=== PATIENT | female | born 1985 | race Caucasian/White ===

== ENCOUNTER → 2017-01-23 | Outpatient (CLI) | payer MEDICAID ==
[~2017-01-23] MED LIST: ALPRAZOLAM0.5 M3 PO; AMOXICILLIN 50500 MG PO; AZITHROMYCIN250 MG PO; BENTYL20 MG PO; BIAXIN 500MG T500 MG PO; CHANTIX STARTING1 MG PO; CIPRO 500MG TA500 MG PO; FLEXERIL10 MG PO; FLUOXETINE HCL40 MG PO; HYDROCODONE1 TABLET PO; K-DUR20 MEQ PO; MELATONIN5 M1 PO; NAPROSYN 375MG375 MG PO; NORCO 325 MG-51 TAB PO; ONE DAILY ESSEN1 TA2 PO; PERCOCET 5/3251 EACH PO; PHENERGAN 25MG.25 M1 PO; PHENERGAN120 ML/BOT PO; PHENERGAN25 M3 PO; PREDNISONE 10MG10 MG PO; PREDNISONE 20MG20 MG PO; PRILOSEC20 MG PO; PROZAC 20MG CAP20 MG PO; PYRIDIUM 200MG200 MG PO; SEPTRA DS 800 M1 TAB PO; TYLENOL W/CODEI1 TA2 PO; VICODIN 5/500 T1 TAB PO; VOLTAREN75 MG PO; XANAX 0.25MG0.25 MG PO; Z PAK PO; ZITHROMAX Z PA250 MG PO; ZOFRAN ODT4 MG PO
[2017-01-23 19:27] LABS: BUN 8 mg/dL (7-18)
[2017-01-23 19:39] LABS: GFR (ESTIMATED) 96 ML/MIN (59-)
== END ==
LOC: LAB 17:46
PROVIDERS: Nurse Practitioner Family
DX: R19.7 Diarrhea, unspecified (principal)

== ENCOUNTER → 2017-03-26 | Outpatient (CLI) | payer MEDICAID ==
[2017-03-26 18:47] LABS: LYMPH # 2.3 K/mm3 (0.7-4.5); LYMPH % 30.3 % (10-50.0)
[2017-03-26 19:18] LABS: HEMOGLOBIN 13.6 g/dL (12.2-16.2)
[2017-03-26 21:34] LABS: BUN 8 mg/dL (7-18)
[2017-03-26 21:42] LABS: GFR (ESTIMATED) 96 ML/MIN (59-)
[2017-03-28 08:53] LABS: Thyroid Peroxidase (TPO) Ab 15 IU/mL (0-34); Vitamin D, 25-Hydroxy 39.3 ng/mL (30.0-100.0)
[2017-03-28 09:39] LABS: Vitamin B12 340 pg/mL (211-946)
[2017-03-28 16:36] LABS: Thyroglobulin Antibody <1.0 IU/mL (0.0-0.9)
== END ==
LOC: LAB 17:34
PROVIDERS: Physician Assistant
DX: E01.0 Iodine-deficiency related diffuse (endemic) goiter (principal)